=== PATIENT | male | born 1945 ===

== ENCOUNTER 2024-12-26 03:08 | Emergency (ER) | payer MEDICARE, MEDICAID ==
[~2024-12-26] VITALS: Ht 177.8 cm; Wt 84.1 kg
[2024-12-26] MEDS ORDERED: DexAMETHasone SOD PHOS 10MG/1ML VIAL INJ IM ONE (03:30)
[2024-12-26] MEDS ORDERED: MORPHINE SULFATE INJ 2 MG/ml SYRG IM ONE (03:30)
--- NOTE | 2024-12-26 03:32 | ED.PDOC ---
Back pain HPI HPI Comments This is a 79-year-old male patient brought in by EMS chief complaint neck pain. Patient was states neck pain x3 days. He notes over the past 24 hours pain has become severe / describes it as sharp shooting pain of the posterior neck to bilateral traps up to the top of his head. Reports no known injury. Patient denies numbness, weakness, nausea, vomiting, slurred speech, dizziness, chest pain, shortness a breath, or worst headache of his life Chief Complaint: Neck Pain Time Seen by MD: 03:20 Reviewed Notes: Nurses Notes, Medications, Allergies Allergies: Coded Allergies: NO KNOWN ALLERGIES (Unverified , 12/26/24) Information Source: Patient Mode of Arrival: EMS Constitutional: denies: chills, diaphoresis, fatigue, fever, malaise, sweats, weakness, others EENTM: denies: blurred vision, double vision, ear bleeding, ear discharge, ear drainage, ear pain, ear ringing, eye pain, eye redness, hearing loss, mouth pain, mouth swelling, nasal discharge, nose bleeding, nose congestion, nose pain, photophobia, tearing, throat pain, throat swelling, voice changes, others Respiratory: denies: cough, hemoptysis, orthopnea, SOB at rest, shortness of breath, SOB with excertion, stridor, wheezing, others Cardiovascular: denies: chest pain, dizzy spells, diaphoresis, Dyspnea on exertion, edema, irregular heart beat, left arm pain, lightheadedness, palpitations, PND, syncope, others Gastrointestinal: denies: abdomen distended, abdominal pain, blood streaked bowels, constipated, diarrhea, dysphagia, difficulty swallowing, hematemesis, melena, nausea, poor appetite, poor fluid intake, rectal bleeding, rectal pain, vomiting, others Genitourinary: denies: burning, dysuria, flank pain, frequency, hematuria, incontinence, penile discharge, penile sore, pain, testicle pain, testicle swelling, urgency, others Neurological: denies: dizziness, fainting, headache, left sided numbness, left sided weakness, numbness, paresthesia, pre-existing deficit, right sided numbness, right sided weakness, seizure, speech problems, tingling, tremors, weakness, others Musculoskeletal: reports: neck pain; denies: back pain, gout, joint pain, joint swelling, muscle pain, muscle stiffness, others Integumetry: denies: bruises, change in color, change in hair/nails, dryness, laceration, lesions, lumps, rash, wounds, others Allergic/Immunocompromised: denies: Difficulty Healing, Frequent Infections, Hives, Itching, others Hematologic/Lymphatic: denies: anemia, blood clots, easy bleeding, easy bruising, swollen glands, others Endocrine: denies: excessive hunger, excessive sweating, excessive thirst, excessive urination, flushing, intolerance to cold, intolerance to heat, unexplained weight gain, unexplained weight loss, others Psychiatric: denies: anxiety, bipolar disorder, depression, hopeless, panic disorder, schizophrenia, sleepless, suicidal, others Physical Exam General Appearance: No Apparent Distress, Normal HEENT: Normal ENT Inspection, Pharynx Normal, TMs Normal Neck: Limited Range of Motion, Tender Lateral (Moderate tenderness palpated over C3 through C7 spine without crepitus no step-offs. Tenderness palpated over bilateral traps. Strength sensory and motion intact bilateral upper extremities positive. 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 Was a procedure done?: No Back Pain Differential Dx Differential Diagnosis: Fracture, Musculoskeletal Pain X-Ray, Labs, Meds, VS Vital Signs Date Time Temp Pulse Resp B/P (MAP) Pulse Ox O2 Delivery O2 Flow Rate FiO2 12/26/24 05:15 78 19 130/87 12/26/24 04:22 98.4 86 20 147/70 (95) 98.4 12/26/24 04:22 84 16 97 Room Air* 0 21 3/17/25 04:21 84 20 147/70 12/26/24 03:13 98.1 66 18 156/80 (105) 96 98.1 Lab Test 12/26/24 04:30 Range/Units Urine Color Light-yellow Yellow Urine Clarity Clear Clear Urine pH 6.0 5.0-9.0 Urine Specific [place] 1.013 1.001-1.035 Urine Protein Negative Negative Urine Ketones Negative Negative Urine Blood Trace H Negative /uL Urine Nitrite Negative Negative Urine Bilirubin Negative Negative Urine Urobilinogen Normal Negative mg/dL Urine Leukocyte Esterase Negative Negative /uL Urine RBC 2 0 - 3 /hpf Urine Microscopic WBC < 1 0-3 /HPF Urine Squamous Epithelial Cells Few <5 /hpf Urine Bacteria None seen None Seen /hpf Urine Glucose Normal Normal mg/dL Current Medications Medications (Trade) Dose Ordered Sig/Ramón Route Start Time Stop Time Status Last Admin Morphine Sulfate 1 mg ONCE ONCE IV 12/26/24 04:15 12/26/24 04:16 DC 12/26/24 04:21 Dexamethasone Sodium Phosphate 10 mg/Dextrose 51 ml @ 204 mls/hr ONCE ONCE IV 12/26/24 04:15 12/26/24 04:29 DC 12/26/24 04:22 X-Ray, Labs, Meds, VS Comment CT CERVICAL SPINE SHOWS NO ACUTE FRACTURES, OSSEOUS LESIONS OR SUBLUXATIONS. PATIENT GIVEN MORPHINE 1 MG IV AND DECADRON 10 MG IV PIGGYBACK. HE WAS POTS IMPROVEMENT IN PAIN AND FUNCTION RATES PAIN 2/10 ON PAIN SCALE DENIES NUMBNESS OR WEAKNESS REQUESTING DISCHARGE AT THIS TIME. 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 ADVISED PATIENT TO FOLLOW UP WITH HIS PCP 160 DAYS CONSIDER FURTHER IMAGING SAYS SHE WAS MRI SINCE IT IS PERSIST OR PHYSICAL THERAPY. DISCUSSED WITH THE PATIENT ER RETURN PRECAUTIONS FOR INCREASING PAIN, NUMBNESS, WEAKNESS, OR ANY CONCERNING SYMPTOMS. PATIENT INDICATES UNDERSTANDING AGREES WITH DISCHARGE PLAN OF CARE. Time of 1ST Reevaluation: 06:02 Reevaluation 1ST: Improved Patient Education/Counseling: Diagnosis, Treatment, Prognosis, Need For Follow Up Family Education/Counseling: No Family Present Departure 1 Departure Time of Disposition: 06:04 Impression: Primary Impression: Degenerative arthritis of cervical spine Qualified Codes: M47.812 - Spondylosis without myelopathy or radiculopathy, cervical region Disposition: 01 HOME / SELF CARE / HOMELESS Condition: Stable e-Prescriptions Methocarbamol (Methocarbamol) 500 Mg Tab 250 MG PO BID PRN for 5 Days, #5 TAB Prov: MINH LE 12/26/24 Methylprednisolone (Medrol Dosepak) 4 Mg Óscar 4 MG PO UD for 6 Days, #21 TAB UAD Prov: MINH LE 12/26/24 Discharged With: Self Critical Care Note Critical Care Time?: No Stability Stability form required: No MINH LE Dec 26, 2024 03:32
[2024-12-26] MEDS: MORPHINE SULFATE INJ 2 MG/ml SYRG IV ONE (04:21)
[2024-12-26 04:22] VITALS: PULSE 84; RESP 16; TEMP 98.4; O2SAT 97
[2024-12-26] MEDS: DexAMETHasone INJECTION 10 MG in D5W 5% 50 ML IV ONE (04:22)
[2024-12-26 04:39] LABS: Urine Bacteria None Seen /hpf (None Seen)
[2024-12-26 04:46] LABS: Urine Blood TRACE /uL (Negative); Urine Clarity Clear (Clear); Urine Color Light-Yellow (Yellow); Urine Protein, UAD Negative (Negative); Urine Specific Gravity 1.013 (1.001-1.035); Urine Squamous Epithelial Cell FEW /hpf (<5); Urine Urobilinogen Normal (Negative); Urine WBC < 1 /HPF (0-3)
[2024-12-26 05:15] VITALS: BP 130/87; PULSE 78; RESP 19
--- NOTE | 2024-12-26 05:57 | DVH ---
EXAM: CT Cervical Spine Without Intravenous Contrast CLINICAL INDICATION: Neck Pain TECHNIQUE: Axial computed tomography images of the cervical spine without intravenous contrast. Thi s CT exam was performed using one or more of the following dose reduction techniques: automated expo sure control, adjustment of the mA and/or kV according to patient size, and/or use of iterative recon struction technique. CONTRAST: RADIATION DOSE: CTDIvol = 24.37 mGy, DLP = 639.35 mGy-cm COMPARISON: None FINDINGS: VERTEBRAE: Degenerative facet arthropathy throughout the cervical spine. No acute fracture. DISCS/SPINAL CANAL/NEURAL FORAMINA: Degenerative disc disease throughout the cervical spine. SOFT TISSUES: Unremarkable. OTHER FINDINGS: . IMPRESSION: 1. No acute fracture. 2. Degenerative changes of the cervical spine as described.
[2024-12-26] MEDS ORDERED: METH-1181 PO (06:05)
[2024-12-26] MEDS ORDERED: METH4PAK PO (06:05)
== END 2024-12-26 06:19 | disposition home or self-care (01) ==
LOC: EDBD 03:08 → ER 03:08
DX: M47.812 Spondylosis without myelopathy or radiculopathy, cervical region (principal)
CPT/HCPCS: 72125; 81001; 96365; 96375; 99285; J1100; J2270; J7060